=== PATIENT | female | born 1960 | race Caucasian/White ===

== ENCOUNTER 2016-07-21 16:05 | Emergency (ER) | payer OTHER ==
[~2016-07-21] VITALS: Ht 157.5 cm; Wt 63.0 kg
[~2016-07-21 16:05] MED LIST: PROAIR HFA0.09 MG/Ac INH; PYRIDIUM200 MG PO; ROBITUSSIN W/CO10 ML PO
--- NOTE | 2016-07-21 16:44 | ED GENERAL ADULT ---
History of Present Illness General Chief Complaint: Abdominal Pain/Flank Pain Stated Complaint: LOW ABD PAIN Source: patient Exam Limitations: no limitations Vital Signs & Intake/Output Vital Signs & Intake/Output Vital Signs Date Time Temp Pulse Resp B/P B/P Pulse O2 O2 Flow FiO2 Mean Ox Delivery Rate 07/21 1958 97.4 92 20 157/88 98 Room Air 07/21 1830 96.6 81 16 147/72 99 Room Air 07/21 1726 Room Air 07/21 1622 98.9 92 15 114/73 100 Room Air Allergies Coded Allergies: amoxicillin (From AUGMENTIN) (SOB, DYSPNEA, CHEST TIGHTNESS 07/21/16) clavulanic acid (From AUGMENTIN) (SOB, DYSPNEA, CHEST TIGHTNESS 07/21/16) Reconcile Medications Ciprofloxacin HCl (Cipro) 500 MG TABLET 1 TAB PO BID DIVERTICULITIS Metronidazole (Flagyl) 500 MG TABLET 1 TAB PO BID DIVERTICULITIS Triage Note: PT TO ED FOR "KIDNEY STONE PAIN" HX OF SAME. WORSENING SINCE LAST WEEK. Triage Nurses Notes Reviewed? yes Onset: Abrupt Duration: day(s): Timing: recent history HPI: 07/21/16 55-year-old female presented to the emergency department with intermittent but severe lower quadrant abdominal pain over the past week. The onset of the symptoms were abrupt, the duration has been approximately 7 days, the severity is significant as her symptoms required her to come to the emergency department for care. She denies fever but admits to nausea. She also has a history of kidney stones. Past History Travel History Traveled to [place] past 21 day No Medical History Any Pertinent Medical History? 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 No Review of Systems Review of Systems Constitutional: Denies: fever. EENTM: Reports: no symptoms. Respiratory: Reports: no symptoms. Cardiovascular: Reports: no symptoms. GI: Reports: abdominal pain, nausea. Genitourinary: Reports: no symptoms. Musculoskeletal: Reports: no symptoms. Skin: Reports: no symptoms. Neurological/Psychological: Reports: no symptoms. Hematologic/Endocrine: Reports: no symptoms. Immunologic/Allergic: Reports: no symptoms. Physical Exam Physical Exam General Appearance: well developed/nourished (consult team and), alert, awake, anxious, mild distress Head: atraumatic, normal appearance Eyes: Bilateral: normal appearance, PERRL, EOMI. Ears, Nose, Throat: normal pharynx, normal ENT inspection Neck: normal inspection, supple, full range of motion Respiratory: normal breath sounds, chest non-tender, no respiratory distress Cardiovascular: regular rate/rhythm Peripheral Pulses: 4+ radial (R), 4+ radial (L) Gastrointestinal: soft, tenderness Back: normal range of motion Extremities: normal inspection, normal range of motion Neurologic/Psych: no motor/sensory deficits, awake, alert, oriented x 3 Core Measures ACS in differential dx? No CVA/TIA Diagnosis: No Severe Sepsis Present: No Septic Shock Present: No Progress Differential Diagnoses I considered the following diagnoses in my evaluation of the patient: [ Diverticulitis, renal colic, cholecystitis, appendicitis] Plan of Care: Orders Procedure Date/time Status LACTIC ACID 07/21 1718 Complete COMPREHENSIVE METABOLIC PANEL 07/21 1718 Complete CBC WITHOUT DIFFERENTIAL 07/21 1718 Complete URINALYSIS 07/21 1624 Complete Laboratory Tests 07/21/16 2019: Lactic Acid Cancelled 07/21/16 1720: Anion Gap 11, Estimated GFR > 60, BUN/Creatinine Ratio 25.7 H, Glucose 89, Lactic Acid 1.1, Calcium 9.4, Total Bilirubin 0.4, AST 22, ALT 34, Alkaline Phosphatase 64, Total Protein 6.9, Albumin 4.2, Globulin 2.7, Albumin/Globulin Ratio 1.6, CBC w Diff NO MAN DIFF REQ, RBC 4.62, MCV 90.4, MCH 29.9, RDW 13.1, MPV 8.6, Gran % 73.2, Lymphocytes % 16.3 L, Monocytes % 7.8, Eosinophils % 2.3, Basophils % 0.4, Absolute Granulocytes 6.4, Absolute Lymphocytes 1.4, Absolute Monocytes 0.7 H, Absolute Eosinophils 0.2, Absolute Basophils 0, PUBS MCHC 33.1 07/21/16 1646: Urine Color YEL, Urine Clarity CLEAR, Urine pH 6.0, Ur Specific [place] 1.020, Urine Protein NEG, Urine Ketones NEG, Urine Nitrite NEG, Urine Bilirubin NEG, Urine Urobilinogen 0.2, Ur Leukocyte Esterase NEG, Ur Microscopic EXAM NOT REQUIRED, Urine Hemoglobin NEG, Urine Glucose NEG Initial ED EKG: none Departure Departure Disposition: HOME OR SELF CARE Condition: Stable Clinical Impression Primary Impression: Diverticulitis Referrals: ISAAC PAYAN,SUKHJINDER Bhandari (PCP/Family) Departure Forms: Customer Survey General Discharge Information Prescriptions: Current Visit Scripts Ciprofloxacin HCl (Cipro) 1 TAB PO BID #20 TAB Metronidazole (Flagyl) 1 TAB PO BID #20 TAB Comments PATIENT: ARIAN HARRELL PRESENT AGE: 55 PATIENT ACCOUNT NO: [id number] : 59 LOCATION: [facility] [place] ORDERING PHYSICIAN: CHALINO MELISSA DO SERVICE DATE: 07/21/16 EXAM TYPE: CAT - CT ABD & PELVIS W/O IV CONTRAS EXAMINATION: CT ABDOMEN AND PELVIS WITHOUT CONTRAST CLINICAL INFORMATION: History for renal colic. Lower abdominal pain for one week. COMPARISON: CT scan abdomen pelvis 06/24/2008. TECHNIQUE: Multidetector volumetric imaging was performed from the superior aspect of the liver through the pubic symphysis. Sagittal and coronal reformatted images were obtained on the technologist's workstation. DLP: 249.53 mGy-cm FINDINGS: LUNG BASES: The visualized lung bases are unremarkable. LIVER, GALLBLADDER, AND BILIARY TREE: Multiple hepatic cysts. No intrapelvic bile duct dilatation. There are 2 adjacent calcified gallstones within the gallbladder. These measure about 1.5 cm in diameter. No edema around the gallbladder. PANCREAS: Unremarkable. SPLEEN: Unremarkable. ADRENAL GLANDS: Unremarkable. KIDNEYS AND URETERS: The kidneys are normal in size, shape, and attenuation. No hydronephrosis, hydroureter, or calculi seen. No perinephric stranding. BLADDER: Unremarkable. GASTROINTESTINAL TRACT: There is diverticulosis of the colon. Diverticula are most numerous at the sigmoid and distal descending colon. At the junction of the descending and sigmoid colon there is a focus of diverticulitis. There is a small region of submucosal thickening and edema in the adjacent pericolonic fat. There is no abscess. No perforation. No bowel obstruction. Moderate amount of scattered stool in the colon. The appendix is normal. The small bowel loops are normal. ABDOMINAL WALL: No significant hernia is appreciated. LYMPH NODES: Normal. VASCULAR: Unremarkable. PELVIC VISCERA: Uterus is anteverted. No adnexal abnormality. OSSEOUS STRUCTURES: Unremarkable. IMPRESSION: 1. Diverticulitis of the sigmoid colon. 2. Cholelithiasis. DICTATED BY: SANDRA SHAFFER MD DATE/TIME DICTATED:07/21/161831 LITHODUPLICATOR OPERATOR:MAGDY DATE/TIME TRANSCRIBED:07/21/161831 CONFIDENTIAL, DO NOT COPY WITHOUT APPROPRIATE AUTHORIZATION. <Electronically signed in Other Vendor System> SIGNED BY: SANDRA SHAFFER MD 07/21/161841 Critical Care Note Critical Care Note Critical Care Time: non-applicable
[2016-07-21 17:33] LABS: ABSOLUTE BASOPHIL COUNT 0 /CUMM (0.0-0.2); ABSOLUTE EOSINOPHIL COUNT 0.2 /CUMM (0.0-0.7); ABSOLUTE GRANULOCYTE CT 6.4 /CUMM (1.4-6.5); ABSOLUTE LYMPH COUNT 1.4 /CUMM (1.2-3.4); ABSOLUTE MONOCYTE COUNT 0.7 /CUMM (0.10-0.60); BASOPHIL % 0.4 % (0.0-2.0); EOSINOPHIL % 2.3 % (0-5); GRANULOCYTE % 73.2 % (42.2-75.2); HEMATOCRIT 41.8 % (37-47); MEAN CORPUSCULAR HGB 29.9 PG (27.0-31.0); MEAN CORPUSCULAR HGB CONC 33.1 G/DL (33.0-37.0); MEAN CORPUSCULAR VOLUME 90.4 FL (81.0-99.0); MEAN PLATELET VOLUME 8.6 FL (7.4-10.4); PLATELET COUNT 288 /CUMM (130-400); RBC DISTRIBUTION WIDTH 13.1 % (11.5-14.5); RED BLOOD CELL CT 4.62 /CUMM (4.20-5.40); WHITE BLOOD CELL COUNT 8.7 /CUMM (4.8-10.8)
--- NOTE | 2016-07-21 18:42 | CT SCAN REPORT ---
EXAMINATION: CT ABDOMEN AND PELVIS WITHOUT CONTRAST CLINICAL INFORMATION: History for renal colic. Lower abdominal pain for one week. COMPARISON: CT scan abdomen pelvis 06/24/2008. TECHNIQUE: Multidetector volumetric imaging was performed from the superior aspect of the liver through the pubic symphysis. Sagittal and coronal reformatted images were obtained on the technologist's workstation. DLP: 249.53 mGy-cm FINDINGS: LUNG BASES: The visualized lung bases are unremarkable. LIVER, GALLBLADDER, AND BILIARY TREE: Multiple hepatic cysts. No intrapelvic bile duct dilatation. There are 2 adjacent calcified gallstones within the gallbladder. These measure about 1.5 cm in diameter. No edema around the gallbladder. PANCREAS: Unremarkable. SPLEEN: Unremarkable. ADRENAL GLANDS: Unremarkable. KIDNEYS AND URETERS: The kidneys are normal in size, shape, and attenuation. No hydronephrosis, hydroureter, or calculi seen. No perinephric stranding. BLADDER: Unremarkable. GASTROINTESTINAL TRACT: There is diverticulosis of the colon. Diverticula are most numerous at the sigmoid and distal descending colon. At the junction of the descending and sigmoid colon there is a focus of diverticulitis. There is a small region of submucosal thickening and edema in the adjacent pericolonic fat. There is no abscess. No perforation. No bowel obstruction. Moderate amount of scattered stool in the colon. The appendix is normal. The small bowel loops are normal. ABDOMINAL WALL: No significant hernia is appreciated. LYMPH NODES: Normal. VASCULAR: Unremarkable. PELVIC VISCERA: Uterus is anteverted. No adnexal abnormality. OSSEOUS STRUCTURES: Unremarkable. IMPRESSION: 1. Diverticulitis of the sigmoid colon. 2. Cholelithiasis.
[2016-07-21 19:59] VITALS: BP 157/88
[2016-07-21] MEDS ORDERED: FLAGYL500 MG PO (20:01)
[2016-07-21] MEDS ORDERED: CIPRO500 M1 PO (20:01)
== END 2016-07-21 20:14 ==
LOC: ERH 16:05
PROVIDERS: Emergency Medicine
DX: K57.92 Diverticulitis of intestine, part unspecified, without perforation or abscess without bleeding (principal)
CPT/HCPCS: 74176; 81003